=== PATIENT | female | born 1925 | race Caucasian/White ===

== ENCOUNTER → 2017-02-07 | Outpatient (REF) | payer MEDICARE, OTHER | LOC: M SFHCPLAZ 11:30 | PROVIDERS: ATTEND Family Medicine | DX: C44.320 Squamous cell carcinoma of skin of unspecified parts of face (principal); L57.0 Actinic keratosis; L98.8 Other specified disorders of the skin and subcutaneous tissue | CPT/HCPCS: 11100; 11101; 88305; G0463 ==

== ENCOUNTER 2017-02-22 08:00 | Outpatient (RCR) | payer SELFPAY ==
[2017-04-26] MEDS ORDERED: MAGN250T9 PO (13:18)
[2017-04-26] MEDS ORDERED: CALTCHW4 PO (13:18)
[2017-04-26] MEDS ORDERED: NITR0.4S14 SL (13:18)
[2017-04-26] MEDS ORDERED: PLAV1TAB2 PO (13:18)
[2017-04-26] MEDS ORDERED: VITA1TAB27 PO (13:18)
[2017-04-26] MEDS ORDERED: DORZ2SOL5 OU (13:18)
[2017-04-26] MEDS ORDERED: CENTCHW3 PO (13:18)
[2017-04-26] MEDS ORDERED: ALPH0.156 OD (13:18)
[2017-04-26] MEDS ORDERED: NORV5TAB PO (13:18)
[2017-04-26] MEDS ORDERED: LEVO75TA4 PO (13:18)
[2017-04-26] MEDS ORDERED: LIPI20TA PO (13:18)
[2017-04-26] MEDS ORDERED: TRAV04OPD OU (13:18)
== END 2017-03-15 ==
LOC: M CR 08:00
PROVIDERS: ATTEND Family Medicine
DX: I25.10 Atherosclerotic heart disease of native coronary artery without angina pectoris (principal); Z51.89 Encounter for other specified aftercare

== ENCOUNTER 2017-05-07 06:24 | Day surgery (SDC) | payer MEDICARE, OTHER ==
[~2017-05-07] VITALS: Ht 162.6 cm; Wt 65.8 kg
[~2017-05-07 06:24] MED LIST: ACETAMINOPHEN 325 MG TAB PO PRN; ALPH0.156 OD; BETAMETHASONE SOLUSPAN 6MG/ML INJ 5ML (J0702) As Ordered ONE; CALTCHW4 PO; CENTCHW3 PO; DORZ2SOL5 OU; LEVO75TA4 PO; LIPI20TA PO; MAGN250T9 PO; NITR0.4S14 SL; NORV5TAB PO; PLAV1TAB2 PO; POVIDONE-IODINE 5% OPHTH PREP SOL 30ML As Ordered ONE; TOBRADEX OPHTH OINT 3.5 GM As Ordered ONE; TOBRAMYCIN INJ 80 MG/2 ML VIAL (J3260) As Ordered ONE; TRAV04OPD OU; VITA1TAB27 PO; mitoMYcin 0.2 MG/VIAL KIT FOR OPHTHALMIC USE (J7315 PER 0.2MG) As Ordered ONE
[2017-05-07] MEDS ORDERED: LR 1,000 ML IV ONE (06:45)
[2017-05-07] MEDS ORDERED: LIDOCAINE 3.5 % 1ML OPHTH TOPICAL GEL OU ONE (07:00)
[2017-05-07] MEDS ORDERED: OFLOXACIN 0.3 % (OCUFLOX) OPTH SOL 5ML OD ONE (07:00)
[2017-05-07] MEDS ORDERED: PROPARACAINE 0.5% OPHTH SOL 15ML OD PRN (07:01)
[2017-05-07] MEDS ORDERED: GLUCPOW24 PO (07:07)
[2017-05-07] MEDS ORDERED: POVIDONE-IODINE 5% OPHTH PREP SOL 30ML As Ordered ONE (08:29)
[2017-05-07] MEDS ORDERED: fentaNYL 100 MCG/2 ML INJECTION (J3010) As Ordered ONE (08:46)
[2017-05-07] MEDS ORDERED: MIDAZOLAM INJ 2 MG/2 ML VIAL (J2250) As Ordered ONE (08:46)
[2017-05-07] MEDS ORDERED: LIDOCAINE 2% W/EPIN INJ 20ML **PRES FREE XX ONE (09:05)
[2017-05-07] MEDS ORDERED: KETOROLAC 0.5% OPHTH SOLN OD ONE (09:30)
[2017-05-07] MEDS ORDERED: TRIMETHOBENZAMIDE 300 MG CAP PO PRN (09:30)
[2017-05-07] MEDS ORDERED: AcetaZOLAMIDE 500 MG ER CAP PO ONE (09:30)
[2017-05-07 09:43] VITALS: BP 139/67
--- NOTE | 2017-05-08 10:01 | RO ---
DATE OF PROCEDURE: 05/07/2017 PREPROCEDURE DIAGNOSIS: Glaucoma, right eye. POSTPROCEDURE DIAGNOSIS: Glaucoma, right eye. PROCEDURE: Placement of the Ex-PRESS shunt with mitomycin seed placement. SURGEON: Dr. Jodi Bradshaw MIXING PLANT DUMPER: None. ANESTHESIA: COMPLICATIONS: None. DESCRIPTION OF PROCEDURE: The patient was brought to the operating room, laid in supine position. The eye was prepped and draped in a sterile fashion for ophthalmic surgery and a lid speculum was placed. A limbal-based conjunctival peritomy was done measuring about 12 to 15 mm. Subconjunctival dissection was carried out toward the limbus and medially and laterally. Hemostasis was obtained as necessary. Mitomycin 0.2 mg per mL was then placed on the scleral bed for about 2-1/2 to 3 minutes followed by copious irrigation with balanced salt solution. Limbal-based rectangular scleral flap measuring 4 mm x 3 mm was then made and the anterior chamber was entered underneath the flap at the blue line with the help of a 27-gauge needle, which was then withdrawn. Through the same tract, the Ex-PRESS shunt version P-50, lot number [id number] was then placed. It was draped over by the scleral flap and conjunctiva closed using #8-0 running Vicryl sutures. No leaks were noted. Lid speculum was removed. TobraDex ointment applied, and the patient was returned to the recovery room in stable condition. edited: 05/10/2017 [id number] tkf MTDD
== END 2017-05-07 09:40 | disposition home or self-care (01) ==
LOC: M SDC 06:24
PROVIDERS: ATTEND Ophthalmology
DX: H40.1131 Primary open-angle glaucoma, bilateral, mild stage (principal); I11.9 Hypertensive heart disease without heart failure; I25.10 Atherosclerotic heart disease of native coronary artery without angina pectoris; E03.9 Hypothyroidism, unspecified; E55.9 Vitamin D deficiency, unspecified; L82.1 Other seborrheic keratosis; M12.9 Arthropathy, unspecified; M54.2 Cervicalgia; I44.7 Left bundle-branch block, unspecified; E78.5 Hyperlipidemia, unspecified; M81.0 Age-related osteoporosis without current pathological fracture; Z88.0 Allergy status to penicillin; Z88.6 Allergy status to analgesic agent; Z88.8 Allergy status to other drugs, medicaments and biological substances; Z79.899 Other long term (current) drug therapy; Z90.710 Acquired absence of both cervix and uterus; Z96.1 Presence of intraocular lens; Z86.73 Personal history of transient ischemic attack (TIA), and cerebral infarction without residual deficits
CPT/HCPCS: 66183; C1783; J2250; J3010; J7315

== ENCOUNTER 2017-05-22 06:11 | Day surgery (SDC) | payer MEDICARE, OTHER ==
[~2017-05-22 06:11] MED LIST changes: -BETAMETHASONE SOLUSPAN 6MG/ML INJ 5ML (J0702) As Ordered ONE; +GLUCPOW24 PO; -POVIDONE-IODINE 5% OPHTH PREP SOL 30ML As Ordered ONE; -TOBRADEX OPHTH OINT 3.5 GM As Ordered ONE; -TOBRAMYCIN INJ 80 MG/2 ML VIAL (J3260) As Ordered ONE; -mitoMYcin 0.2 MG/VIAL KIT FOR OPHTHALMIC USE (J7315 PER 0.2MG) As Ordered ONE
[2017-05-22] MEDS ORDERED: POVIDONE-IODINE 5% OPHTH PREP SOL 30ML As Ordered ONE (06:33)
[2017-05-22] MEDS ORDERED: ACETYLCHOLINE OPHTH SOLN 1% 2ML (MIOCHOL-E) As Ordered ONE (06:33)
[2017-05-22] MEDS ORDERED: LIDOCAINE 1% SDV 5 ML VIAL As Ordered ONE (06:33)
[2017-05-22] MEDS ORDERED: HEALON DUET (HEALON 10MG/ML 0.55ML & HEALON ENDOCOAT 30MG/ML 0.85ML) As Ordered ONE (06:34)
[2017-05-22] MEDS ORDERED: CEFUROXIME 1MG/0.1ML INTRACAMERAL INJ As Ordered ONE (06:34)
[2017-05-22] MEDS ORDERED: PROPARACAINE 0.5% OPHTH SOL 15ML OD PRN (07:01)
[2017-05-22] MEDS ORDERED: BESI0.6S OD (07:12)
[2017-05-22] MEDS ORDERED: ATRO1OPD OD (07:12)
[2017-05-22] MEDS ORDERED: RANI15TA PO (07:12)
[2017-05-22] MEDS ORDERED: PRED10TA2 PO (07:12)
[2017-05-22] MEDS ORDERED: BALANCED SALT IRRIGATION SOLUTION 500ML BAG (FOR OR EYE MACHINE) As Ordered ONE (07:17)
[2017-05-22] MEDS ORDERED: LIDOCAINE 3.5 % 1ML OPHTH TOPICAL GEL As Ordered ONE (07:22)
[2017-05-22] MEDS ORDERED: fentaNYL 100 MCG/2 ML INJECTION (J3010) As Ordered ONE (07:44)
[2017-05-22] MEDS ORDERED: MIDAZOLAM INJ 2 MG/2 ML VIAL (J2250) As Ordered ONE (07:44)
[2017-05-22] MEDS ORDERED: LIDOCAINE 3.5 % 1ML OPHTH TOPICAL GEL OU ONE (07:45)
[2017-05-22] MEDS ORDERED: OFLOXACIN 0.3 % (OCUFLOX) OPTH SOL 5ML OD ONE (07:45)
[2017-05-22] MEDS ORDERED: TOBRADEX OPHTH OINT 3.5 GM As Ordered ONE (07:52)
[2017-05-22] MEDS ORDERED: AcetaZOLAMIDE 500 MG ER CAP As Ordered ONE (08:27)
[2017-05-22 08:45] VITALS: BP 176/77
[2017-05-22] MEDS ORDERED: TRIMETHOBENZAMIDE 300 MG CAP PO PRN (08:45)
[2017-05-22] MEDS ORDERED: AcetaZOLAMIDE 500 MG ER CAP PO ONE (08:45)
--- NOTE | 2017-05-22 10:16 | RO ---
DATE OF PROCEDURE: 05/21/2017 PREOPERATIVE DIAGNOSIS: Wound leak right eye. POSTOPERATIVE DIAGNOSIS: Wound leak right eye. PROCEDURE PERFORMED: Wound revision right eye. ANESTHESIA: Topical sedation. SURGEON: Florence Gray MD DIRECTOR OF MOBILE MARKETING: DESCRIPTION OF PROCEDURE: The patient was prepped and draped in the usual fashion. Lid speculum was placed between the lids. The patient was instructed to look downwards, and the limbal-base conjunctival flap was examined. The 8-0 Vicryl suture was somewhat loose, and there were some gaps in the conjunctiva. The 8-0 Vicryl suture was removed, and a new 8-0 Vicryl suture was placed running from one edge of the wound to the other. Multiple throws were made, and multiple throws were locked. This suture was then tied at both ends. One other suture was placed for a small gap in the conjunctiva as a single interrupted 8-0 Vicryl. The patient tolerated the procedure well. TobraDex ointment was applied, and a patch and shield was placed. The patient went to the recovery room in stable condition.
[2017-05-22] MEDS ORDERED: D5W/0.2% SODIUM CHLORIDE 250 ML IV ONE (11:45)
[2017-05-23] MEDS ORDERED: LIDOCAINE 3.5 % 1ML OPHTH TOPICAL GEL OU ONE (07:00)
[2017-05-23] MEDS ORDERED: OFLOXACIN 0.3 % (OCUFLOX) OPTH SOL 5ML OD ONE (07:00)
== END 2017-05-22 08:50 | disposition home or self-care (01) ==
LOC: M SDC 06:11
PROVIDERS: ATTEND Ophthalmology
DX: T81.89XA Other complications of procedures, not elsewhere classified, initial encounter (principal); I11.9 Hypertensive heart disease without heart failure; I25.10 Atherosclerotic heart disease of native coronary artery without angina pectoris; E03.9 Hypothyroidism, unspecified; E55.9 Vitamin D deficiency, unspecified; L82.1 Other seborrheic keratosis; M12.9 Arthropathy, unspecified; M54.2 Cervicalgia; I44.7 Left bundle-branch block, unspecified; E78.5 Hyperlipidemia, unspecified; M81.0 Age-related osteoporosis without current pathological fracture; Z88.0 Allergy status to penicillin; Z88.6 Allergy status to analgesic agent; Z88.8 Allergy status to other drugs, medicaments and biological substances; Z79.899 Other long term (current) drug therapy; Z90.710 Acquired absence of both cervix and uterus; Z96.1 Presence of intraocular lens; Z86.73 Personal history of transient ischemic attack (TIA), and cerebral infarction without residual deficits
CPT/HCPCS: 66250; J2250; J3010

== ENCOUNTER → 2017-06-20 | Outpatient (REF) | payer MEDICARE, OTHER ==
[~2017-06-20] MED LIST changes: -ACETAMINOPHEN 325 MG TAB PO PRN; +ATRO1OPD OD; +BESI0.6S OD; +PRED10TA2 PO; +RANI15TA PO
[2017-06-20 13:04] LABS: ANION GAP 2 MEQ/L (8-16); BLOOD UREA NITROGEN 13 MG/DL (7-18); CARBON DIOXIDE LEVEL 35 MEQ/L (21-32); CHLORIDE LEVEL 106 MEQ/L (98-107); CREATININE FOR GFR 0.61 MG/DL (0.55-1.02); FREE T4 1.58 NG/DL (0.76-1.46); GLOMERULAR FILTRATION RATE > 60.0 (>32); GLUCOSE, FASTING 94 MG/DL (83-110); POTASSIUM SERUM 3.7 MEQ/L (3.5-5.1); SODIUM LEVEL 143 MEQ/L (136-145)
== END ==
LOC: M SFHCPLAZ 08:38
PROVIDERS: ATTEND Family Medicine
DX: I11.9 Hypertensive heart disease without heart failure (principal); E03.9 Hypothyroidism, unspecified; Z23 Encounter for immunization
CPT/HCPCS: 36415; 80048; 84439; 84443; 90662; G0008; G0463

== ENCOUNTER 2017-07-29 11:17 | Outpatient (RCR) | payer SELFPAY | END 2017-08-15 | LOC: M CR 11:17 | PROVIDERS: ATTEND Family Medicine | DX: Z51.89 Encounter for other specified aftercare (principal); I25.10 Atherosclerotic heart disease of native coronary artery without angina pectoris ==